=== PATIENT | female | born 2000 | race Caucasian/White ===

== ENCOUNTER → 2024-12-06 09:07 | Outpatient (BNVA) | payer MEDICAID, SELFPAY | PROVIDERS: Referring Provider Advanced Practice Midwife; Visit Provider Obstetrics & Gynecology | DX: R87.629 Unspecified abnormal cytological findings in specimens from vagina (principal) | CPT/HCPCS: 81025; 88305 ==

== ENCOUNTER 2025-02-01 06:47 | Day surgery (SDC) | payer OTHER, MEDICAID, SELFPAY ==
[2025-02-01] VITALS (9 sets, daily range): BP systolic 115–144; BP diastolic 74–86; PULSE 55–101; RESP 11–24; TEMP 36.1–36.8; O2SAT 99–100; BMI 20.8
--- NOTE | 2025-02-01 00:52 | P.HP_ITS ---
Same Day Surgery H&P Indication for Procedure/HPI DATE OF PROCEDURE: February 01, 2025 CHIEF COMPLAINT/INDICATIONFOR SURGICAL PROCEDURE: cervical dysplasia PREOP DIAGNOSIS: cervical dysplasia PLANNED PROCEDURE: Operation Date: 02/01/25 08:20 Proposed Procedures p Loop Electrosurgical Excision Procedure 06007, R87.619, N87.1(Not Applicable) - Tayo Gamble MD 23 y.o. with moderate cervical dysplasia on cervical biopsy now for electrosurgical loop excision of the cervix Medications/Allergies* Home Medications ?Medication ?Instructions ?Recorded ?Confirmed ?Type No Known Home Medications 12/06/24 04/0 05/20 History Allergies/Adverse Reactions Allergy/AdvReac Type Severity Reaction Status Date / Time No Known Allergies Allergy Unverified 12/31/24 11:02 Pertinent History/Comorbid Conditions* Family History (Updated 12/06/24 @ 09:50 by Montez Wilson) Breast cancer Grandfather Hypertension Grandfather Father Denies family history of Colon cancer Ovarian cancer Prostate cancer Diabetes Heart disease Hyperlipidemia Uterine cancer Thyroid disease Stroke Social History Smoking and tobacco/nicotine status: never used tobacco/nicotine Pertinent Exam Findings alert, oriented x 3, clear to auscultation bilaterally and regular rate & rhythm Pertinent Data s/p colposcopy, ECC, CxBx here on December 06, 2024 Pathology of ECC and CxBx: GOYO II, p16 + Recommendations Surgery/Procedure today Coding Level of Care Code Acute Code for Chg Fwd
[2025-02-01 07:15] LABS: OR HCG Qualitative Urine Negative (Negative)
--- NOTE | 2025-02-01 07:31 | ANES.PREANE2 ---
Pre-Anesthetic Assessment Height/Weight: Height 5 ft 2 in Preop Diagnosis: cervical dysplasia Operation Date: 02/01/25 08:20 Proposed Procedures p Loop Electrosurgical Excision Procedure 71886, R87.619, N87.1(Not Applicable) - Tayo Gamble MD Was Beta Jesús taken within 24 hours: N/A Was Clonidine taken within 24 hours: N/A Social No alcohol and No tobacco Exam alert, oriented x 3, clear to auscultation bilaterally and regular rate & rhythm Airway Submandibular: within normal limits Cervical ROM: within normal limits Mallampati: Class I Dentition: full Anesthetic Plan ASA status: 1 Anesthesia: General Other: No prior issues with anesthesia NPO since yesterday evening Denies any cardiac or pulmonary issues hCG negative METs greater than 4 Plan for general anesthesia Medications/Allergies Home Medications ?Medication ?Instructions ?Recorded ?Confirmed ?Last Taken ?Type No Known Home Medications 12/06/24 01/31/25 Unknown History Allergies Allergy/AdvReac Type Severity Reaction Status Date / Time No Known Allergies Allergy Unverified 12/31/24 11:02 [facility] Anesthesia Family History Grandfather Breast cancer Hypertension Father Hypertension Denies family history of Colon cancer Ovarian cancer Prostate cancer Diabetes Heart disease Hyperlipidemia Uterine cancer Thyroid disease Stroke Social History Smoking and tobacco/nicotine status: never used tobacco/nicotine Data Anesthesia Cardiac Studies: No Data to Display
--- NOTE | 2025-02-01 07:35 | W.PM.OPSUD ---
Surgery/Procedure H&P Update DATE OF PROCEDURE: February 01, 2025 DATE H&P PERFORMED: 02/01/25 H&P UPDATE INFORMATION: I have reviewed H&P completed within last 30 days, I have examined patient prior to procedure and No changes to prior documentation PREOP DIAGNOSIS: cervical dysplasia PLANNED PROCEDURE: Operation Date: 02/01/25 08:20 Proposed Procedures p Loop Electrosurgical Excision Procedure 23700, R87.619, N87.1(Not Applicable) - Tayo Gamble MD
[2025-02-01] MEDS: scopolamine 1 mg PATCH 1 PATCH TRANSDERMA (07:52)
[2025-02-01] MEDS: sodium chloride 0.9% 1,000 ML 30 ML IV (07:53)
[2025-02-01] MEDS: vasopressin 20 unit/mL INJ 10 UNIT INJECTION (08:33)
--- NOTE | 2025-02-01 09:10 | PM.OP ---
Operative Report Date of procedure: February 01, 2025 Pre-op diagnosis: moderate cervical dysplasia Post-op diagnosis: same Procedure done: Electrosurgical loop excision of the cervix Implants: none Specimens removed/disposition: cervical tissue Surgeon: Tayo Gamble MD Anesthesia: MAC Estimated blood loss (mL): 5 Complications: none Condition: stable Disposition: PACU Brief History: 24 y.o. with moderate cervical dysplasia Procedure: Informed consent signed The patient was taken to the operating room and placed supine on the table. MAC anesthesia was induced. The patient was placed in dorsolithotomy position. The patient was prepped and draped in the usual sterile fashion. A bivalve speculum was placed in the vagina. The anterior lip of the cervix was grasped with a single toothed tenaculum. The cervix was then infiltrated at the cervicovaginal junction with 20 U of vasopressin to decrease bleeding. Electrosurgical loop excision of the cervix was done to a depth of approximately 5 mm. No bleeding was seen. Excellent hemostasis was noted. All instruments were then removed. The patient was placed supine, awakened, and taken to the recovery room. Postoperative condition: stable EBL: less than 5 cc Complications: none Sponge and instrument counts were correct x two
[2025-02-01] MEDS: acetaminophen 1,000 MG/100 ML PIGGYBACK 400 MG IV (09:55)
--- NOTE | 2025-02-01 10:19 | ANE.PACU2 ---
Inpatient post-anesthesia follow up: Airway intact: Yes Vital signs: Temperature 97.4 F Pulse Rate 70 Respiratory Rate 16 Blood Pressure 137/74 Pulse Oximetry 100 Oxygen Delivery Me thod Room Air Oxygen Flow Rate 8 Fraction of Inspir ed Oxygen Hydration adequate: Yes Nausea and vomiting: No Pain level: 1 Mental status: Baseline
== END 2025-02-01 10:19 | disposition home or self-care (01) ==
PROVIDERS: Student in an Organized Health Care Education/Training Program; PCP Obstetrics & Gynecology; Visit Provider Obstetrics & Gynecology
PROC: 0UBC7ZZ Excision of Cervix, Via Natural or Artificial Opening (ICD-10-PCS; CPT 57522; principal; 2025-02-01 08:10)
DX: N87.1 Moderate cervical dysplasia (principal); N72 Inflammatory disease of cervix uteri
CPT/HCPCS: 57522; 81025; 88305; 88342; A4216; J0131; J1100; J1885; J2250; J2405; J2704; J3010; J3490; J7030; J9999

== ENCOUNTER → 2025-05-16 15:20 | Outpatient (BNVA) | payer MEDICAID, SELFPAY | PROVIDERS: Visit Provider Obstetrics & Gynecology | DX: N87.1 Moderate cervical dysplasia (principal) | CPT/HCPCS: 88175 ==

== ENCOUNTER → 2025-08-15 16:18 | Outpatient (BNVA) | payer MEDICAID, SELFPAY | PROVIDERS: Visit Provider Obstetrics & Gynecology | DX: R87.619 Unspecified abnormal cytological findings in specimens from cervix uteri (principal) | CPT/HCPCS: 88175 ==